=== PATIENT | female | born 1945 | race Hispanic/Latino ===

== ENCOUNTER 2016-08-09 13:34 | Outpatient (CLI) | payer BC ==
--- NOTE | 2016-08-10 08:42 | Mammography Report ---
Bilateral mammogram: Compared to 11/09/13. CAD study utilized. Findings: Heterogeneous breast parenchyma bilaterally. No mass or microcalcification. Benign axillary nodes. Impression: Benign findings. Annual followup recommended. BI-RADS CATEGORY: 2 = Benign ACR BI-RADS MAMMOGRAPHIC CODES: 0 = Needs additional imaging evaluation; 1 = Negative; 2 = Benign; 3 = Probably benign; 4 = Suspicious; 5 = Malignant; 6 = Known biopsy-proven malignancy COMMENT: 1. Dense breast tissue, i.e., adenosis, fibrocystic changes, etc., may obscure an underlying neoplasm. 2. Approximately 10% of cancers are not detected with mammography. 3. A negative mammography report should not delay biopsy if a clinically suspicious mass is present. COMMENT: Patient follow-up letters are generated in [employer].
== END 2016-08-09 13:35 | disposition home or self-care (01) ==
LOC: SPVWC 13:34
PROVIDERS: ATTEND Family Medicine Adult Medicine
DX: Z12.31 Encounter for screening mammogram for malignant neoplasm of breast (principal)
CPT/HCPCS: 77067; G0202

== ENCOUNTER 2017-08-30 11:59 | Outpatient (CLI) | payer BC ==
--- NOTE | 2017-09-02 09:31 | Mammography Report ---
BILATERAL DIGITAL SCREENING MAMMOGRAM : 08/30/17 11:59:00 CLINICAL: Routine screening.Note that CAD was not utilized for this exam. COMPARISON:08/09/16 FINDINGS: The breasts are heterogeneously dense, which may obscure small masses. Bilateral frontal asymmetries require additional imaging. No architectural distortion or suspicious calcifications. IMPRESSION: Bilateral asymmetries requiring additional imaging. BI-RADS CATEGORY: 0--Needs Additional Imaging RECOMMENDATION: Recall for bilateral spot magnification views and bilateral breast ultrasound needed. COMMENT: Patient follow-up letters are generated by our [employer] application.
== END 2017-08-30 12:00 | disposition home or self-care (01) ==
LOC: SPVWC 11:59
PROVIDERS: ATTEND Family Medicine Adult Medicine
DX: Z12.31 Encounter for screening mammogram for malignant neoplasm of breast (principal)
CPT/HCPCS: 77067

== ENCOUNTER 2020-10-27 12:35 | Outpatient (CLI) | payer BC ==
--- NOTE | 2020-10-27 17:49 | Mammography Report ---
DIGITAL SCREENING MAMMOGRAM WITH CAD, 10/27/2020 CLINICAL INFORMATION / INDICATION: Routine screening mammography. TECHNIQUE: Digital bilateral 2D mammography was obtained in the craniocaudal and mediolateral obliqu e projections. This examination was interpreted with the benefit of Computer-Aided Detection analysis . COMPARISON: 08/30/2017, 08/09/2016. FINDINGS: Breast Density: The breasts are heterogeneously dense, which may obscure small masses. No dominant mass, suspicious calcifications, or architectural distortion in either breast. There has been no significant interval change. IMPRESSION: No mammographic evidence of malignancy. Follow up recommendation: Routine yearly BI-RADS Category 1: Negative. A "normal" or negative report should not discourage follow up or biopsy of a clinically significant f inding. A written summary of these findings will be mailed to the patient. The patient will be entered into a mammography reporting system which will generate a reminder letter for the patient's next appointmen t at the appropriate interval. The [employer] recommends yearly mammograms starting at age 40 and continuing as l anthony as a woman is in good health. Breast MRI is recommended for women with an approximate 20-25% or greater lifetime risk of breast cancer, including women with a strong family history of breast or ova tim cancer or who have been treated for Hodgkin's disease. Signer Name: Albino Roy MD Signed: 10/27/2020 5:45 PM Workstation Name: [id number]
== END 2020-10-27 12:36 | disposition home or self-care (01) ==
LOC: SPVWC 12:35
PROVIDERS: ATTEND Internal Medicine
DX: Z12.31 Encounter for screening mammogram for malignant neoplasm of breast (principal)
CPT/HCPCS: 77067